=== PATIENT | female | born 1990 | race Caucasian/White ===

== ENCOUNTER 2016-06-24 15:32 | Emergency (ER) | payer MEDICAID, OTHER ==
[2016-06-24 15:56] LABS: MICROSCOPIC INDICATED? MAN YES (NO)
[2016-06-24 16:05] LABS: SQUAMOUS EPITHELIAL CELL URINE MOD AMOUNT /hpf (SMALL AMT); WBC, URINE TNTC /hpf (0-3)
[2016-06-24 16:06] LABS: BACTERIA, URINE MOD AMOUNT
[2016-06-24 16:07] LABS: HYALINE CAST, URINE NONE SEEN /lpf (0-1)
[2016-06-24 16:08] LABS: MICROSCOPIC EXAM PERFORMED
[2016-06-24] MEDS ORDERED: NITROFURANTOIN (MACROBID) 100 MG CAP As Ordered ONE (16:28)
--- NOTE | 2016-06-24 16:37 | EDDOCDS ---
Physician Documentation [facility] Name: Jasmina Guerrier Age: 26 yrs Sex: Female : 1990 Arrival Date: 06/24/2016 Time: 15:32 Bed Triage 2 Private MD: Cindy [facility] Disposition: 06/24/16 16:28 Discharged to Home/Self Care. Impression: Acute cystitis. - Condition is Stable. - Prescriptions for Macrobid 100 mg Oral Capsule - take 100 milligram by ORAL route every 12 hours for 14 days; 28 capsule. Pyridium 200 mg Oral Tablet - take 1 tablet by ORAL route every 8 hours for 3 days; 9 tablet. - Medication Reconciliation, Local Pharmacy Hours form. - Follow up: Emergency Department; When: As soon as possible; Reason: Worsening of conditions. Follow up: Private Physician; When: 2 - 3 days; Reason: Recheck today's complaints. - Problem is an ongoing problem. - Symptoms are unchanged. Historical: - Allergies: no known allergies; - Home Meds: 1. Pyridium 200 mg Oral tab (Last dose: 06/24/2016 11:30) - PMHx: UTI's, Frequent; - PSHx: Appendectomy; Adenoidectomy; Tonsillectomy; - Social history: Smoking status: Patient uses tobacco products, current every day smoker. No barriers to communication noted, The patient speaks fluent Nepali, Speaks appropriately for age. - Family history: Not pertinent. - : The pt / caregiver states he / she is not on anticoagulants. Home medication list is obtained from the patient. - Exposure Risk Screening:: None identified. 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 5 in. (165.10 cm) (R); Pain 7/10; 15:34 Body Mass Index 21.13 (57.61 kg, 165.10 cm) gr2 MDM: 15:46 Urine Culture Ordered. EDMS 15:52 URINALYSIS MANUAL Ordered. EDMS 16:22 MICROSCOPIC, URINE Reviewed. jk8 16:22 URINALYSIS MANUAL Reviewed. jk8 16:27 Nitrofurantoin 100 mg PO once ordered. jk8 16:36 Financial registration complete. christian 16:36 [facility] Payment Agreement was scanned into [employer] and attached to record. christian Administered Medications: 16:29 Drug: Nitrofurantoin 100 mg Route: PO; srm Signatures: Dispatcher [employer] EDMS Audra Juarez RN RN srm Robie, Kathleen, RN RN kr3 Eulalio Benítez PA-C PA-C jk8 Beck, Gabriela gjb The chart was reviewed and I authenticate all verbal orders and agree with the evaluation and treatment provided.Corrections: (The following items were deleted from the chart) 15:52 15:46 URINALYSIS+LAB ordered. EDMS EDMS Attachments: 16:36 [facility] Payment Agreement gjtesha MTDD
--- NOTE | 2016-06-24 16:37 | EDDOCDS ---
Nurse's Notes [facility] Name: Jasmina Guerrier Age: 26 yrs Sex: Female : 1990 Arrival Date: 06/24/2016 Time: 15:32 Bed Triage 2 Private MD: Cindy [facility] Diagnosis: Acute cystitis Presentation: 06/24 15:41 Presenting complaint: Patient states: symptoms of UTI since waking this AM. Adult kr3 Sepsis Screening: The patient does not have new or worsening altered mentation. Patient's respiratory rate is less than 22. Systolic blood pressure is greater than 100. Patient has a qSOFA score of 0- Negative Sepsis Screen. Suicide/Homicide risk assessment- the patient denies having any suicidal and/or homicidal ideations and does not present with any other emotional, behavioral or mental health complaints. Status: Patient is not a food service aide or dependent. Transition of care: patient was not received from another setting of care. 15:41 Acuity: HEIKE Level 4 kr3 15:41 Method Of Arrival: Walkin/Carried/Asstd kr3 Triage Assessment: 15:42 General: Appears in no apparent distress, comfortable, Behavior is cooperative. Pain: kr3 Denies pain. HIV screening NA for this visit Offered previously. Neurological: No deficits noted. Respiratory: Respiratory effort is even, unlabored. : Reports burning with urination urgency urinary frequency. 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 Pyridium 200 mg Oral tab (Last dose: 06/24/2016 11:30) - PMHx: UTI's, Frequent; - PSHx: Appendectomy; Adenoidectomy; Tonsillectomy; - Social history: Smoking status: Patient uses tobacco products, current every day smoker. No barriers to communication noted, The patient speaks fluent Upper Sorbian, Speaks appropriately for age. - Family history: Not pertinent. - : The pt / caregiver states he / she is not on anticoagulants. Home medication list is obtained from the patient. - Exposure Risk Screening:: None identified. Screenin:34 Screening information is obtained from the patient. Fall risk: No risks identified. srm Assistance ADL's: requires no assistance with activities of daily living. Abuse/DV Screen: The patient / caregiver reports he/she is: not in a situation that causes fear, pain or injury. Nutritional screening: No deficits noted. Advance Directives: There is no active DNR order. home support is adequate. Assessment: 16:34 General: Appears in no apparent distress, Behavior is appropriate for age, cooperative. srm EENT: No deficits noted. Cardiovascular: No deficits noted. Respiratory: No deficits noted. GI: No deficits noted. 16:34 : Reports burning with urination urinary frequency. [facility] Vital Signs: 15:34 BP 116 / 63; Pulse 85; Resp 18 S; Temp 96.8(O); Pulse Ox 100% on R/A; Weight 57.61 kg gr2 (R); Height 5 ft. 5 in. (165.10 cm) (R); Pain 7/10; 15:34 Body Mass Index 21.13 (57.61 kg, 165.10 cm) gr2 Vitals: 15:34 Log In Time: June 24, 2016 at 15:34. gr2 ED Course: 15:33 Patient visited by Livia Cartagena. gr2 15:33 Patient moved to Waiting gr2 15:34 [facility] is Private Physician. gr2 15:36 Patient visited by Livia Cartagena. gr2 15:36 Patient moved to Pre RCE gr2 15:42 Triage Initiated kr3 15:43 Patient moved to Triage 2 kr3 15:49 Urine Culture Sent. kr3 15:56 URINALYSIS MANUAL Sent. jf3 16:22 [facility]ul[facility] jk8 16:22 Tammie Ricci MD is Attending Physician. jk8 16:26 Patient visited by Eulalio Benítez PA-C. jk8 16:34 The patient / caregiver is instructed regarding the plan of care and ED course. Patient srm has correct armband on for positive identification. 16:34 No IV's were initiated during this patient's visit. No procedures done that require srm assistance. 16:36 [facility] Payment Agreement was scanned into [employer] and attached to record. gjb Administered Medications: 16:29 Drug: Nitrofurantoin 100 mg Route: PO; srm Order Results: Lab Order: URINALYSIS MANUAL; SPEC'M 06/24/16 15:47 Test: APPEARANCE, URINE MANUAL; Value: HAZY; Range: CLEAR; Abnormal: Above high normal; Status: F Test: COLOR, URINE MANUAL; Value: ORANGE; Range: YELLOW; Abnormal: Above high normal; Status: F Test: PH,URINE MAN; Value: 5.0; Range: 5.0 - 9.0; Units: UNITS; Status: F Test: SPECIFIC GRAVITY,URINE MANUAL; Value: 1.020; Range: 1.002-1.035; Status: F Test: PROTEIN, URINE MANUAL; Value: OBSCURED; Range: NEGATIVE; Abnormal: Above high normal; Units: mg/dL; Status: F Test: GLUCOSE, URINE (UA) MANUAL; Value: OBSCURED; Range: NEGATIVE; Abnormal: Above high normal; Units: mg/dL; Status: F Test: KETONE, URINE MANUAL; Value: OBSCURED; Range: NEGATIVE; Abnormal: Above high normal; Units: mg/dL; Status: F Test: UROBILINOGEN, URINE MANUAL; Value: OBSCURED; Range: NORMAL; Abnormal: Above high normal; Units: mg/dl; Status: F Test: BILIRUBIN, URINE MANUAL; Value: OBSCURED; Range: NEGATIVE; Abnormal: Above high normal; Status: F Test: NITRITE, URINE MANUAL; Value: OBSCURED; Range: NEGATIVE; Abnormal: Above high normal; Status: F Test: LEUKOCYTE ESTERASE, URINE MAN; Value: OBSCURED; Range: NEGATIVE; Abnormal: Above high normal; Status: F Test: BLOOD URINE MANUAL; Value: OBSCURED; Range: NEGATIVE; Abnormal: Above high normal; Status: F Lab Order: MICROSCOPIC, URINE; SPEC'M 06/24/16 15:47 Test: WBC, URINE; Value: TNTC; Range: 0-3; Abnormal: Above high normal; Units: /hpf; Status: F Test: RBC, URINE; Value: 5-7; Range: 0-3; Abnormal: Above high normal; Units: /hpf; Status: F Test: SQUAMOUS EPITHELIAL CELL URINE; Value: MOD AMOUNT; Range: SMALL AMT; Abnormal: Above high normal; Units: /hpf; Status: F Test: BACTERIA, URINE; Value: MOD AMOUNT; Range: NONE; Abnormal: Above high normal; Status: F Test: HYALINE CAST, URINE; Value: NONE SEEN; Range: 0-1; Units: /lpf; Status: F Test: MICROSCOPIC EXAM; Status: I Test: MUCUS, URINE; Value: MOD AMOUNT; Range: NEGATIVE; Abnormal: Above high normal; Status: F Test: AMORPHOUS SEDIMENT, URINE; Value: SMALL AMOUNT; Range: NEGATIVE; Abnormal: Above high normal; Status: F Test: MICROSCOPIC EXAM; Value: PERFORMED; Status: F Outcome: 16:28 Discharge ordered by Provider. jk8 16:34 Discharge Assessment: Patient awake, alert and oriented x 3. No cognitive and/or srm functional deficits noted. Patient verbalized understanding of disposition instructions. patient administered narcotics - no. The following High Risk Discharge criteria are identified: None. Discharged to home ambulatory. Condition: good Condition: stable. Discharge instructions given to patient, Instructed on discharge instructions, follow up and referral plans. medication usage, Demonstrated understanding of instructions, medications, Pt was receptive of discharge instructions/ teaching. Prescriptions given X 2. No special radiology studies were completed. Property :Personal belongings accompany Pt. 16:36 Patient left the ED. srm Signatures: Audra Juarez RN RN srm Steffany OlearyRN RN kr3 Livia Cartagena gr2 Eulalio Benítez, PA-C PA-C jk8 Nawaf Beebe,RN RN preston3 Jacinta Kwok Corrections: (The following items were deleted from the chart) 15:52 15:49 URINALYSIS+LAB sent. kr3 EDMS MTDD
--- NOTE | 2016-06-26 17:37 | EDDOCDS ---
Nurse's Notes [facility] Name: Jasmina Guerrier Age: 26 yrs Sex: Female : 1990 Arrival Date: 06/24/2016 Time: 15:32 Bed Triage 2 Private MD: Cindy [facility] Diagnosis: Acute cystitis Presentation: 06/24 15:41 Presenting complaint: Patient states: symptoms of UTI since waking this AM. Adult kr3 Sepsis Screening: The patient does not have new or worsening altered mentation. Patient's respiratory rate is less than 22. Systolic blood pressure is greater than 100. Patient has a qSOFA score of 0- Negative Sepsis Screen. Suicide/Homicide risk assessment- the patient denies having any suicidal and/or homicidal ideations and does not present with any other emotional, behavioral or mental health complaints. Status: Patient is not a passenger service representative or dependent. Transition of care: patient was not received from another setting of care. 15:41 Acuity: HEIKE Level 4 kr3 15:41 Method Of Arrival: Walkin/Carried/Asstd kr3 Triage Assessment: 15:42 General: Appears in no apparent distress, comfortable, Behavior is cooperative. Pain: kr3 Denies pain. HIV screening NA for this visit Offered previously. Neurological: No deficits noted. Respiratory: Respiratory effort is even, unlabored. : Reports burning with urination urgency urinary frequency. 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 Pyridium 200 mg Oral tab (Last dose: 06/24/2016 11:30) - PMHx: UTI's, Frequent; - PSHx: Appendectomy; Adenoidectomy; Tonsillectomy; - Social history: Smoking status: Patient uses tobacco products, current every day smoker. No barriers to communication noted, The patient speaks fluent Indonesian, Speaks appropriately for age. - Family history: Not pertinent. - : The pt / caregiver states he / she is not on anticoagulants. Home medication list is obtained from the patient. - Exposure Risk Screening:: None identified. Screenin:34 Screening information is obtained from the patient. Fall risk: No risks identified. srm Assistance ADL's: requires no assistance with activities of daily living. Abuse/DV Screen: The patient / caregiver reports he/she is: not in a situation that causes fear, pain or injury. Nutritional screening: No deficits noted. Advance Directives: There is no active DNR order. home support is adequate. Assessment: 16:34 General: Appears in no apparent distress, Behavior is appropriate for age, cooperative. srm EENT: No deficits noted. Cardiovascular: No deficits noted. Respiratory: No deficits noted. GI: No deficits noted. 16:34 : Reports burning with urination urinary frequency. [facility] Vital Signs: 15:34 BP 116 / 63; Pulse 85; Resp 18 S; Temp 96.8(O); Pulse Ox 100% on R/A; Weight 57.61 kg gr2 (R); Height 5 ft. 5 in. (165.10 cm) (R); Pain 7/10; 15:34 Body Mass Index 21.13 (57.61 kg, 165.10 cm) gr2 Vitals: 15:34 Log In Time: June 24, 2016 at 15:34. gr2 ED Course: 15:33 Patient visited by Livia Cartagena. gr2 15:33 Patient moved to Waiting gr2 15:34 [facility] is Private Physician. gr2 15:36 Patient visited by Livia Cartagena. gr2 15:36 Patient moved to Pre RCE gr2 15:42 Triage Initiated kr3 15:43 Patient moved to Triage 2 kr3 15:49 Urine Culture Sent. kr3 15:56 URINALYSIS MANUAL Sent. jf3 16:22 [facility] jk8 16:22 Tammie Ricci MD is Attending Physician. jk8 16:26 Patient visited by Eulalio Benítez PA-C. jk8 16:34 The patient / caregiver is instructed regarding the plan of care and ED course. Patient srm has correct armband on for positive identification. 16:34 No IV's were initiated during this patient's visit. No procedures done that require srm assistance. 16:36 [facility] Payment Agreement was scanned into [employer] and attached to record. gjb 16:42 Patient name changed from Jasmina\S\\S\Eselin\S\ to Jasmina\S\ \S\Eselin. EDMS 06/25 10:48 T-Sheet-- Draft Copy was scanned into [employer] and attached to record. gb Administered Medications: 06/24 16:29 Drug: Nitrofurantoin 100 mg Route: PO; srm Order Results: Lab Order: Urine Culture; SPEC'M 06/24/16 15:47 Test: URINE CULTURE; Value: <EXTERNAL COMMENT eCWMed> FULL REPORT IN LAB NOTES (eCW and Medent).; Status: F Test: URINE CULTURE; Value: URINE CULTURE RESULT NO GROWTH; Status: F Lab Order: URINALYSIS MANUAL; SPEC'M 06/24/16 15:47 Test: APPEARANCE, URINE MANUAL; Value: HAZY; Range: CLEAR; Abnormal: Above high normal; Status: F Test: COLOR, URINE MANUAL; Value: ORANGE; Range: YELLOW; Abnormal: Above high normal; Status: F Test: PH,URINE MAN; Value: 5.0; Range: 5.0 - 9.0; Units: UNITS; Status: F Test: SPECIFIC GRAVITY,URINE MANUAL; Value: 1.020; Range: 1.002-1.035; Status: F Test: PROTEIN, URINE MANUAL; Value: OBSCURED; Range: NEGATIVE; Abnormal: Above high normal; Units: mg/dL; Status: F Test: GLUCOSE, URINE (UA) MANUAL; Value: OBSCURED; Range: NEGATIVE; Abnormal: Above high normal; Units: mg/dL; Status: F Test: KETONE, URINE MANUAL; Value: OBSCURED; Range: NEGATIVE; Abnormal: Above high normal; Units: mg/dL; Status: F Test: UROBILINOGEN, URINE MANUAL; Value: OBSCURED; Range: NORMAL; Abnormal: Above high normal; Units: mg/dl; Status: F Test: BILIRUBIN, URINE MANUAL; Value: OBSCURED; Range: NEGATIVE; Abnormal: Above high normal; Status: F Test: NITRITE, URINE MANUAL; Value: OBSCURED; Range: NEGATIVE; Abnormal: Above high normal; Status: F Test: LEUKOCYTE ESTERASE, URINE MAN; Value: OBSCURED; Range: NEGATIVE; Abnormal: Above high normal; Status: F Test: BLOOD URINE MANUAL; Value: OBSCURED; Range: NEGATIVE; Abnormal: Above high normal; Status: F Lab Order: MICROSCOPIC, URINE; SPEC'M 06/24/16 15:47 Test: WBC, URINE; Value: TNTC; Range: 0-3; Abnormal: Above high normal; Units: /hpf; Status: F Test: RBC, URINE; Value: 5-7; Range: 0-3; Abnormal: Above high normal; Units: /hpf; Status: F Test: SQUAMOUS EPITHELIAL CELL URINE; Value: MOD AMOUNT; Range: SMALL AMT; Abnormal: Above high normal; Units: /hpf; Status: F Test: BACTERIA, URINE; Value: MOD AMOUNT; Range: NONE; Abnormal: Above high normal; Status: F Test: HYALINE CAST, URINE; Value: NONE SEEN; Range: 0-1; Units: /lpf; Status: F Test: MICROSCOPIC EXAM; Status: I Test: MUCUS, URINE; Value: MOD AMOUNT; Range: NEGATIVE; Abnormal: Above high normal; Status: F Test: AMORPHOUS SEDIMENT, URINE; Value: SMALL AMOUNT; Range: NEGATIVE; Abnormal: Above high normal; Status: F Test: MICROSCOPIC EXAM; Value: PERFORMED; Status: F Outcome: 16:28 Discharge ordered by Provider. jk8 16:34 Discharge Assessment: Patient awake, alert and oriented x 3. No cognitive and/or srm functional deficits noted. Patient verbalized understanding of disposition instructions. patient administered narcotics - no. The following High Risk Discharge criteria are identified: None. Discharged to home ambulatory. Condition: good Condition: stable. Discharge instructions given to patient, Instructed on discharge instructions, follow up and referral plans. medication usage, Demonstrated understanding of instructions, medications, Pt was receptive of discharge instructions/ teaching. Prescriptions given X 2. No special radiology studies were completed. Property :Personal belongings accompany Pt. 16:36 Patient left the ED. srm Signatures: Dispatcher [employer] EDAudra Estrada, RN RN [facility] Katie Farmer, Reg Reg Steffany Oleary,RN RN kr3 Livia Cartagena gr2 Eulalio Benítez PABrittney PABrittney jk8 Nawaf Beebe,BRIANNA RN preston3 Jacinta Kwok Corrections: (The following items were deleted from the chart) 15:52 15:49 URINALYSIS+LAB sent. royer MCINTOSH Chart Complete MTDD
--- NOTE | 2016-06-26 17:37 | EDDOCDS ---
Physician Documentation [facility] Name: Jasmina Guerrier Age: 26 yrs Sex: Female : 1990 Arrival Date: 06/24/2016 Time: 15:32 Bed Triage 2 Private MD: Cindy [facility] Disposition: 06/24/16 16:28 Discharged to Home/Self Care. Impression: Acute cystitis. - Condition is Stable. - Prescriptions for Macrobid 100 mg Oral Capsule - take 100 milligram by ORAL route every 12 hours for 14 days; 28 capsule. Pyridium 200 mg Oral Tablet - take 1 tablet by ORAL route every 8 hours for 3 days; 9 tablet. - Medication Reconciliation, Local Pharmacy Hours form. - Follow up: Emergency Department; When: As soon as possible; Reason: Worsening of conditions. Follow up: Private Physician; When: 2 - 3 days; Reason: Recheck today's complaints. - Problem is an ongoing problem. - Symptoms are unchanged. Historical: - Allergies: no known allergies; - Home Meds: 1. Pyridium 200 mg Oral tab (Last dose: 06/24/2016 11:30) - PMHx: UTI's, Frequent; - PSHx: Appendectomy; Adenoidectomy; Tonsillectomy; - Social history: Smoking status: Patient uses tobacco products, current every day smoker. No barriers to communication noted, The patient speaks fluent Hungarian, Speaks appropriately for age. - Family history: Not pertinent. - : The pt / caregiver states he / she is not on anticoagulants. Home medication list is obtained from the patient. - Exposure Risk Screening:: None identified. 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 5 in. (165.10 cm) (R); Pain 7/10; 15:34 Body Mass Index 21.13 (57.61 kg, 165.10 cm) gr2 MDM: 15:46 Urine Culture Ordered. EDMS 15:52 URINALYSIS MANUAL Ordered. EDMS 16:22 MICROSCOPIC, URINE Reviewed. jk8 16:22 URINALYSIS MANUAL Reviewed. jk8 16:27 Nitrofurantoin 100 mg PO once ordered. jk8 16:36 Financial registration complete. [facility] 16:36 [facility] Payment Agreement was scanned into [employer] and attached to record. [facility] 06/25 10:48 T-Sheet-- Draft Copy was scanned into [employer] and attached to record. gb Administered Medications: 06/24 16:29 Drug: Nitrofurantoin 100 mg Route: PO; srm Signatures: Dispatcher [employer] EDMS Audra Juarez, RN RN srm Katie Farmer, Reg Reg gb Steffany Oleary,RN RN kr3 Eulalio Benítez PA-C PA-C jk8 Beck, Gabriela gjb The chart was reviewed and I authenticate all verbal orders and agree with the evaluation and treatment provided.Corrections: (The following items were deleted from the chart) 15:52 15:46 URINALYSIS+LAB ordered. EDMS EDMS Attachments: 16:36 [facility] Payment Agreement [facility] 06/25 10:48 T-Sheet-- Draft Copy gb Chart Complete MTDD
--- NOTE | 2016-06-26 17:37 | EDDOCDS ---
Physician Documentation [facility] Name: Jasmina Guerrier Age: 26 yrs Sex: Female : 1990 Arrival Date: 06/24/2016 Time: 15:32 Bed Triage 2 Private MD: Cindy [facility] Disposition: 06/24/16 16:28 Discharged to Home/Self Care. Impression: Acute cystitis. - Condition is Stable. - Prescriptions for Macrobid 100 mg Oral Capsule - take 100 milligram by ORAL route every 12 hours for 14 days; 28 capsule. Pyridium 200 mg Oral Tablet - take 1 tablet by ORAL route every 8 hours for 3 days; 9 tablet. - Medication Reconciliation, Local Pharmacy Hours form. - Follow up: Emergency Department; When: As soon as possible; Reason: Worsening of conditions. Follow up: Private Physician; When: 2 - 3 days; Reason: Recheck today's complaints. - Problem is an ongoing problem. - Symptoms are unchanged. Historical: - Allergies: no known allergies; - Home Meds: 1. Pyridium 200 mg Oral tab (Last dose: 06/24/2016 11:30) - PMHx: UTI's, Frequent; - PSHx: Appendectomy; Adenoidectomy; Tonsillectomy; - Social history: Smoking status: Patient uses tobacco products, current every day smoker. No barriers to communication noted, The patient speaks fluent Turkmen, Speaks appropriately for age. - Family history: Not pertinent. - : The pt / caregiver states he / she is not on anticoagulants. Home medication list is obtained from the patient. - Exposure Risk Screening:: None identified. 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 5 in. (165.10 cm) (R); Pain 7/10; 15:34 Body Mass Index 21.13 (57.61 kg, 165.10 cm) gr2 MDM: 15:46 Urine Culture Ordered. EDMS 15:52 URINALYSIS MANUAL Ordered. EDMS 16:22 MICROSCOPIC, URINE Reviewed. jk8 16:22 URINALYSIS MANUAL Reviewed. jk8 16:27 Nitrofurantoin 100 mg PO once ordered. jk8 16:36 Financial registration complete. [facility] 16:36 [facility] Payment Agreement was scanned into [employer] and attached to record. [facility] 06/25 10:48 T-Sheet-- Draft Copy was scanned into [employer] and attached to record. gb Administered Medications: 06/24 16:29 Drug: Nitrofurantoin 100 mg Route: PO; srm Signatures: Dispatcher [employer] EDMS Audra Juarez, RN RN srm Katie Farmer, Reg Reg gb Steffany Oleary,RN RN kr3 Eulalio Benítez PA-C PA-C jk8 Beck, Gabriela gjb The chart was reviewed and I authenticate all verbal orders and agree with the evaluation and treatment provided.Corrections: (The following items were deleted from the chart) 15:52 15:46 URINALYSIS+LAB ordered. EDMS EDMS Attachments: 16:36 [facility] Payment Agreement [facility] 06/25 10:48 T-Sheet-- Draft Copy gb Chart Complete MTDD
== END 2016-06-24 16:36 | disposition home or self-care (01) ==
LOC: M ED 15:32
DX: N30.00 Acute cystitis without hematuria (principal); Z87.440 Personal history of urinary (tract) infections; F17.200 Nicotine dependence, unspecified, uncomplicated

== ENCOUNTER → 2018-05-06 | Outpatient (CLI) | payer OTHER ==
[2018-05-06 17:58] LABS: BASO % 0.4 % (0.0-1.0); EOS # 0.1 10^3/uL (0.0-0.50); EOS % 0.9 % (0.0-3.0); HEMATOCRIT 37.1 % (36.0-47.0); HEMOGLOBIN 12.5 g/dl (12.0-15.5); LYMPH # 1.2 10^3/uL (1.5-6.5); LYMPH % 14.3 % (24.0-44.0); MEAN CORPUSCULAR HEMOGLOBIN 30.8 pg (27.0-33.0); MEAN CORPUSCULAR HGB CONC 33.7 g/dl (32.0-36.5); MEAN CORPUSCULAR VOLUME 91.4 fl (80.0-96.0); MONO # 0.4 10^3/uL (0.0-0.8); MONO % 5.3 % (0.0-5.0); NEUTROPHILS # 6.4 10^3/uL (1.8-7.7); NEUTROPHILS % 78.7 % (36.0-66.0); PLATELET COUNT, AUTOMATED 179 10^3/uL (150-450); RED BLOOD COUNT 4.06 10^6/uL (4.00-5.40); WHITE BLOOD COUNT 8.1 10^3/uL (4.0-10.0)
[2018-05-06 19:54] LABS: CHLAMYDIA DNA AMPLIFICATION NEGATIVE (NEGATIVE); GC DNA AMPLIFICATION NEGATIVE (NEGATIVE)
[2018-05-07 11:56] LABS: HEPATITIS C VIRUS ABY INDEX 0.1 INDEX (<0.8); HIV 1&2 SCREEN CENTAUR NEGATIVE (NEGATIVE); RUBELLA IgG QUALITATIVE IMMUNE (IMMUNE)
== END ==
LOC: M SMT 14:55
PROVIDERS: ATTEND Advanced Practice Midwife
DX: Z36.89 Encounter for other specified antenatal screening (principal)

== ENCOUNTER → 2018-06-11 | Outpatient (CLI) | payer OTHER ==
--- NOTE | 2018-06-11 22:39 | REP ---
Clinical: Anatomical evaluation. Comparison: None . Findings: Examination demonstrates a single live intrauterine in variable presentation. motion is identified by technologist. Placenta is noted anterior and grade grade zero without evidence for placenta previa or abruption. Amniotic fluid volume is normal. Cervix measures 4.2 cm in length and appears closed. No evidence for nuchal cord. Gestational age by LMP 18 weeks 1 day with LONI 11/11/2018 . Gestational age by current measurements 17 weeks 5 days with LONI 11/14/2018 . FHR equals 146 beats per minute. BPD 3.8 cm 17 weeks 5 days HC 14.7 cm 17 weeks 6 days AC 12.1 cm 17 weeks 5 days FL 2.6 cm 17 weeks 6 days HL 2.5 cm 17 weeks 5 days HC/AC ratio 1.21 Estimated weight 210 grams ( 35th percentile). Anatomical assessment demonstrates normal structures including cranium, choroid plexus, cavum, cerebellum/posterior fossa, stomach, cord insertion/three-vessel cord, kidneys/bladder, spine, and extremities. Limited evaluation of the facial features, lungs, four-chamber heart/ventricular outflow tracts, and diaphragm. Impression: Single live intrauterine in variable presentation demonstrating appropriate interval growth. Anatomical limitations as noted above warrants reevaluation and follow-up. No gross abnormality identified. Electronically Signed by Joselo Allen MD 06/11/2018 10:30 P
== END ==
LOC: M RAD 10:26
PROVIDERS: ATTEND Advanced Practice Midwife
DX: Z36.89 Encounter for other specified antenatal screening (principal); Z3A.17 17 weeks gestation of pregnancy

== ENCOUNTER → 2018-07-03 | Outpatient (CLI) | payer OTHER ==
--- NOTE | 2018-07-03 15:08 | REP ---
OB ULTRASOUND: Real-time sonographic evaluation of gravid uterus performed. There is a single living intrauterine gestation, estimated gestational age 21 weeks 2 days, EDC 11/11/2018. Today's measurements indicate appropriate growth. BPD 47 mm = 20 weeks 1 day, 18th percentile HC 179 mm = 20 weeks 2 days, 20th percentile AC 152 mm = 20 weeks 3 days, 31st percentile Femur length 34 mm = 20 weeks 5 days, 36th percentile HC/AC ratio 1.18, within normal range. Estimated weight 359 grams, 22nd percentile. Cervix closed and measures 4.8 cm in length. heart rate 150 beats per minute. SEEN/GROSSLY UNREMARKABLE Lateral ventricles Yes Posterior fossa Yes Upper lip No Four-chamber heart No LVOT No RVOT No Stomach Yes Cord insertion Yes Three vessel cord Yes Kidneys Yes Bladder Yes Spine Yes position: Breech. Placenta: Anterior and grade 0 with no previa or abruption. Amniotic fluid: Within normal limits. Electronically Signed by Franco Bailey MD 07/04/2018 03:51 P
== END ==
LOC: M RAD 12:32
PROVIDERS: ATTEND Advanced Practice Midwife
DX: Z34.82 Encounter for supervision of other normal pregnancy, second trimester (principal); Z3A.21 21 weeks gestation of pregnancy

== ENCOUNTER → 2018-07-31 | Outpatient (CLI) | payer OTHER ==
--- NOTE | 2018-07-31 18:01 | REP ---
Clinical: Anatomical evaluation. Comparison: Cephalic . Findings: Examination demonstrates a single live intrauterine in cephalic presentation. motion is identified by technologist. Placenta is noted anterior and grade I without evidence for placenta previa or abruption. Amniotic fluid volume is normal. Cervix measures 4.8 cm in length and appears closed. No evidence for nuchal cord. Gestational age by LMP 25 weeks 2 days with LONI 11/11/2018 . Gestational age by current measurements 24 weeks 1 day with LONI 11/19/2018 . FHR equals 139 beats per minute. Estimated weight 694 grams ( 21st percentile). Anatomical assessment demonstrates normal structures including cranium, choroid plexus, cavum, cerebellum/posterior fossa, facial features, lungs, four-chamber heart/ventricular outflow tracts, diaphragm, stomach, cord insertion/three-vessel cord, kidneys/bladder, spine, and extremities. Impression: Single live intrauterine in cephalic presentation demonstrating appropriate interval growth. 2. Anatomical assessment is complete and normal. Electronically Signed by Joselo Allen MD 07/31/2018 05:53 P
== END ==
LOC: M RAD 12:35
PROVIDERS: ATTEND Advanced Practice Midwife
DX: O99.332 Smoking (tobacco) complicating pregnancy, second trimester (principal); Z3A.25 25 weeks gestation of pregnancy; F17.200 Nicotine dependence, unspecified, uncomplicated

== ENCOUNTER → 2018-08-18 | Outpatient (CLI) | payer OTHER ==
[2018-08-18 13:46] LABS: HEMATOCRIT 36.2 % (36.0-47.0); HEMOGLOBIN 12.3 g/dl (12.0-15.5); MEAN CORPUSCULAR HEMOGLOBIN 31.1 pg (27.0-33.0); MEAN CORPUSCULAR VOLUME 91.4 fl (80.0-96.0); PLATELET COUNT, AUTOMATED 189 10^3/uL (150-450); RED BLOOD COUNT 3.96 10^6/uL (4.00-5.40); WHITE BLOOD COUNT 12.1 10^3/uL (4.0-10.0)
== END ==
LOC: M LAB 12:16
PROVIDERS: ATTEND Advanced Practice Midwife
DX: O99.332 Smoking (tobacco) complicating pregnancy, second trimester (principal); Z3A.00 Weeks of gestation of pregnancy not specified

== ENCOUNTER → 2018-10-10 | Outpatient (REF) | payer OTHER | LOC: M LAB REF 16:56 | PROVIDERS: ATTEND Advanced Practice Midwife | DX: O99.333 Smoking (tobacco) complicating pregnancy, third trimester (principal) ==

== ENCOUNTER → 2018-10-16 | Outpatient (CLI) | payer OTHER | LOC: M SMT 13:44 | PROVIDERS: ATTEND Advanced Practice Midwife | DX: O99.333 Smoking (tobacco) complicating pregnancy, third trimester (principal); F17.200 Nicotine dependence, unspecified, uncomplicated ==

== ENCOUNTER 2018-11-13 08:01 | Inpatient (IN) | payer OTHER ==
[~2018-11-13] VITALS: Ht 165.1 cm; Wt 88.0 kg
[2018-11-13] VITALS (13 sets, daily range): BP systolic 94–108; BP diastolic 50–58
[2018-11-13] MEDS ORDERED: CVS500CA5 PO (08:22)
[2018-11-13] MEDS ORDERED: HM C500T3 PO (08:22)
[2018-11-13] MEDS ORDERED: PRENTAB9 PO (08:22)
[2018-11-13] MEDS: miSOPROStol 50 MCG 1/2 TAB (S0191) PO SCH ×4 (09:36→21:46)
[2018-11-13 09:37] LABS: HEMATOCRIT 34.9 % (36.0-47.0); MEAN CORPUSCULAR HEMOGLOBIN 31.6 pg (27.0-33.0); MEAN CORPUSCULAR HGB CONC 34.4 g/dl (32.0-36.5); MEAN CORPUSCULAR VOLUME 91.8 fl (80.0-96.0); PLATELET COUNT, AUTOMATED 162 10^3/uL (150-450); WHITE BLOOD COUNT 10.2 10^3/uL (4.0-10.0)
[2018-11-13] MEDS ORDERED: NICOTINE POLACRILEX 2 MG GUM PO PRN (09:45)
--- NOTE | 2018-11-13 09:47 | HPEPDOC ---
Obstetrical History & Physical General Date of Admission Nov 13, 2018 at 08:01 History of Present Illness 28 yo G1 at 40 2/7 wks presenting for IOL. She reports feeling well. Denies ctx, VB, LOF, +FM. 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, STIs PMH: denies PSH: T&A, appendectomy Meds: PNV NKDA SH: smokes, denies alcohol or other drug use Information Provided By: Patient Past Medical History Past Medical History Medical History None Surgical History: Appendectomy, Tonsilectomy Family History Significant Family History: No pertinent family hx Social History * Smoker: current smoker Drugs: denies Allergies Coded Allergies: No Known Allergies (Unverified , 11/13/18) Medications Scheduled Cranberry Fruit Extract (Cranberry) 500 Mg Tablet, 1 TAB PO BID No.137/Iron/Folic Acd ( Vitamin Tablet) 1 Each Tablet, 1 TAB PO DAILY Physical Examination Physical Examination GENERAL: Alert and oriented times three. ABDOMEN: Gravid and non-tender to touch. FETUS: Is vertex (VTX) by sterile vaginal examination (SVE), fetus is vertex (VTX) by Kyle. EXTREMITIES: No edema. No clonus. Vital Signs/I&O Vital Signs Date Time Temp Pulse Resp B/P (MAP) Pulse Ox O2 Delivery O2 Flow Rate FiO2 11/13/18 08:43 97.1 78 18 106/58 (74) Laboratory Data 24[facility] Laboratory Tests 2 11/13/18 08:32: Serology Scanned Report Hepatitis B Testing Pertinent Laboratoy Data Blood Type: O+ RBC Antibody Screen: Negative HIV: Negative Hepatitis B: Negative Hepatitis C: Negative Rapid Plasma Reagin: Nonreactive Rubella: Immune Chlamydia/Gonorrhea: Negative Group B Streptococcus: Negative Other Ultrasounds 04/21/2018: viabilitySIUP with CRL: 38.4mm,. 10 weeks 5 days.EDC cw LMP. Positive cardiac motion and movement noted 06/11/2018: AnatomySIUP. Placenta anterior, grade 0, no previa or abruption. AFV normal. Cx 4.2cm closed. FHR 146. EFW 210g (35%). Limited evaluation of facial features, lungs, four-chamber heart, VOT's, and diaphragm. Remainder of assessment complete and normal. 07/03/2018: Follow UpSIUP. Breech. Placenta anterior, grade 0, no previa or abruption. AFV normal. EFW 359g (22%). Cx 4.8cm. FHR 150. Upper lip, four-chamber heart and VOT's still not visualized. Remainder of assessment complete and normal. 07/31/2018: f/uSIUP. Cephalic. Placenta anterior, grade 1, no previa or abruption. AFV normal. Cx 4.8cm closed. FHR 139. EFW 694g (21%). Assessment complete and normal. Steroid Therapy Steroid Therapy: No Vaginal Examination Dilation: None Effacement: 50% Station: -2 Cervical Consistency: Medium Cervical Position: Middle Presentation: Cephalic presentation Assessment Heart Rate (FHR): 130 Variability: Moderate Accelerations: Positive Decelerations: None Tocometer Contractions: Yes Assessment/Plan Assessment 28 yo G1 at 40 2/7 wks here for IOL Plan Admit and orient. Issuer and consent. IOL: will start with misoprostol, SVE prn Diet: Regular Group B Streptococcus (GBS) negative. Labs and intravenous (IV) per unit protocol. FWB: reassuring Smoking: nicotine replacement while admitted d/w Dr. John Richard, PGY3 DENN[place] RICHARD PGY-3 Nov 13, 2018 09:47
[2018-11-14] VITALS (43 sets, daily range): BP systolic 78–127; BP diastolic 46–78
[2018-11-14] MEDS: miSOPROStol 50 MCG 1/2 TAB (S0191) PO SCH (01:42)
--- NOTE | 2018-11-14 06:41 | NUR ---
L&D Note: -No overnight issues. Has received 5 doses of 50mcg cytotec. Exam was unchanged early. Cat 1 tracing with q5mins. Plan to start pitocin. Agata Lopez MD
[2018-11-14] MEDS: OXYTOCIN DRIP 30 UNITS in APPROPRIATE DILUENT 1 EA IV SCH ×2 (06:49→07:37)
[2018-11-14] MEDS: LR 1,000 ML IV SCH ×3 (07:37→18:58)
--- NOTE | 2018-11-14 08:14 | IPNPDOC ---
Text Note Date of Service The patient was seen on 11/14/18. NOTE Comfortable, reports only mild cramping Irregular UC Pitocin @ 2mu Cat I tracing SVE FT-/high Cooks catheter placed Pt plans epidural VS,Fishbone, I+O VS, Fishbone, I+O Laboratory Tests 11/13/18 09:22 Red Blood Count 3.80 L, Mean Corpuscular Volume 91.8, Mean Corpuscular Hemoglobin 31.6, Mean Corpuscular Hemoglobin Concent 34.4, Red Cell Distribution Width 12.9 Vital Signs Date Time Temp Pulse Resp B/P (MAP) Pulse Ox O2 Delivery O2 Flow Rate FiO2 11/14/18 07:42 63 18 99/54 (69) 11/14/18 06:08 98.2 Macy Rangel CNM Nov 14, 2018 08:14
[2018-11-14] MEDS ORDERED: PROMETHAZINE INJ 25 MG/ML VIAL (J2550) IV ONE (08:30)
[2018-11-14] MEDS ORDERED: BUTORPHANOL 2 MG/ML INJ (J0595) IV ONE (08:30)
[2018-11-14] MEDS ORDERED: FENTANYL 2MCG/ML ROPIVACAINE 0.2% IN 0.9% NACL 100ML IVBAG As Ordered ONE (13:51)
[2018-11-14] MEDS ORDERED: LACTATED RINGER'S 1000 ML IV PRN (15:00)
[2018-11-14] MEDS ORDERED: REFRIGERATOR IV KEYS XX PRN (15:00)
[2018-11-14] MEDS ORDERED: diphenhydrAMINE INJ 50MG/ML VIAL (J1200) IV PRN (15:00)
[2018-11-14] MEDS ORDERED: NALOXONE INJ 0.4 MG/1 ML VIAL (J2310) IV PRN (15:00)
[2018-11-14] MEDS ORDERED: FENTANYL/ROPIVACAINE/NACL BAG 100 ML EPIDURAL SCH (15:00)
[2018-11-14] MEDS ORDERED: ePHEDrine SULFATE 25 MG/5 ML(5MG/ML) SYRINGE IV PRN (15:00)
[2018-11-14] MEDS ORDERED: EPIDURAL COMMENT XX SCH (15:00)
[2018-11-14] MEDS ORDERED: EPIDURAL/PCA KEYS XX PRN (15:00)
[2018-11-14] MEDS ORDERED: ONDANSETRON 4MG/2ML VIAL (J2405) IV PRN (15:00)
--- NOTE | 2018-11-14 15:04 | IPNPDOC ---
Text Note Date of Service The patient was seen on 11/14/18. NOTE Comfortable with epidural UC remain irregular, pitocin @ 14. Cat I tracing. Bulb out with SROM 1220 SVE by nursing after epidural 3-4 and high VS,Fishbone, I+O VS, Fishbone, I+O Vital Signs Date Time Temp Pulse Resp B/P (MAP) Pulse Ox O2 Delivery O2 Flow Rate FiO2 11/14/18 14:53 98.7 60 16 97/52 (67) Macy Rangel CNM Nov 14, 2018 15:04
--- NOTE | 2018-11-14 16:20 | IPNPDOC ---
Text Note Date of Service The patient was seen on 11/14/18. NOTE Comfortable with epidural UC 3-5 minutes apart x 60 seconds Pitocin @ 10mu FH Cat I SVE 4-5/80/-3, anterior. Fluid remains clear VS,Fishbone, I+O VS, Fishbone, I+O Vital Signs Date Time Temp Pulse Resp B/P (MAP) Pulse Ox O2 Delivery O2 Flow Rate FiO2 11/14/18 14:53 98.7 60 16 97/52 (67) Macy Rangel CNM Nov 14, 2018 16:20
--- NOTE | 2018-11-14 22:41 | IPNPDOC ---
Text Note Date of Service The patient was seen on 11/14/18. NOTE Remains comfortable with epidural UC 2-4 minutes apart x 60 seconds FH mostly Cat I with short episodes of Cat II Pitocin @ 20mu SVE 5/100/-2 Continue to observe VS,Fishbone, I+O VS, Fishbone, I+O Vital Signs Date Time Temp Pulse Resp B/P (MAP) Pulse Ox O2 Delivery O2 Flow Rate FiO2 11/14/18 19:36 97.6 18 11/14/18 19:30 66 106/57 (73) Macy Rangel CNM Nov 14, 2018 22:41
[2018-11-15] VITALS (18 sets, daily range): BP systolic 91–116; BP diastolic 50–71
[2018-11-15] MEDS ORDERED: OXYTOCIN 30 UNITS IN 0.9% NaCl 500ML IV BAG (J2590) As Ordered ONE ×2 (00:13→12:09)
[2018-11-15] MEDS: OXYTOCIN DRIP 30 UNITS in APPROPRIATE DILUENT 1 EA IV SCH (01:07)
--- NOTE | 2018-11-15 06:28 | IPNPDOC ---
Text Note Date of Service The patient was seen on 11/15/18. NOTE Has been pushing intermittently since 0500. Cat I tracing with early decels with pushing UC 4-5 minutes apart, pitocin @ 20mu Presenting part descends to +2 with pushing efforts, retreats to 0 station in between. Will inform physician VS,Dada, I+O VS, Chuye, I+O Vital Signs Date Time Temp Pulse Resp B/P (MAP) Pulse Ox O2 Delivery O2 Flow Rate FiO2 11/15/18 05:30 57 99/55 (70) 11/15/18 05:00 16 11/15/18 04:30 99.0 I&O- Last 24 Hours up to 6 AM 11/15/18 06:00 Intake Total 3080 ml Output Total 650 ml Balance 2430 ml Macy Rangel CNM Nov 15, 2018 06:27
--- NOTE | 2018-11-15 08:41 | NUR ---
Progress Note Pt had to have epidural bolus for pain relief. Pt was not pushing correctly/effectively when she had uncontrolled pain. Now that she has had adequate pain relief, she's ready to push. SVE: c/c/0 Pushing efforts are focused and with adequate power. Minimal descent with pushing efforts. Cat I FHR [place]: ctxs every 4-5 min; pit adjusted from 4 to 8mU/min A/P: Second stage. Pushing. Minimal descent. Suspect OP presentation. -We discussed PLTCS vs continued efforts for . She would like to continue with pushing efforts. Charlotte Emery, DO
[2018-11-15] MEDS ORDERED: AZITHROMYCIN INJ 500MG VIAL (J0456) As Ordered ONE (09:55)
[2018-11-15] MEDS ORDERED: BICITRA 30ML SOLN UDC As Ordered ONE (09:55)
[2018-11-15] MEDS ORDERED: ceFAZolin 2 GM/D5W 50 ML IV BAG (J0690 PER 500MG) As Ordered ONE (09:55)
--- NOTE | 2018-11-15 10:12 | NUR ---
Progress Note Pt is continuing to push with outstanding effort. However, there has been minimal descent of the vertex. Head position assessed as LOP. Caput present. VSS,afebrile FHR: Cat I, short periods of Cat II, overall reassuring. Moderate variability present. A/P: Arrest of descent. Reassuring maternal and status. Offered PLTCS for arrest of descent. Pt agrees to proceed in this fashion. Informed consent obtained. --Preparations being made for OR. Charlotte Emery DO
[2018-11-15] MEDS ORDERED: BICITRA 30ML SOLN UDC PO ONE (10:15)
[2018-11-15] MEDS ORDERED: AZITHROMYCIN INJ 500 MG, VIAL MATE ADAPTER 1 EACH in D5W 250 ML IV ONE (10:15)
[2018-11-15] MEDS ORDERED: OXYTOCIN INJ 10 UNITS/ML VIAL (J2590) As Ordered ONE (10:26)
[2018-11-15] MEDS ORDERED: MORPHINE PRES-FREE INJ 10 MG/10 ML VIAL (J2274) As Ordered ONE (10:29)
[2018-11-15] MEDS ORDERED: LIDOCAINE PRES-FREE 2% 10ML AMP As Ordered ONE (10:31)
[2018-11-15] MEDS ORDERED: EPINEPHrine INJ 1 MG/ML 1ML AMP As Ordered ONE (10:32)
[2018-11-15] MEDS ORDERED: dexameTHASONE 4 MG/ML 1ML VIAL (J1100) As Ordered ONE (10:32)
[2018-11-15] MEDS ORDERED: MIDAZOLAM INJ 2 MG/2 ML VIAL (J2250) As Ordered ONE (10:59)
[2018-11-15] MEDS ORDERED: NALOXONE INJ 0.4 MG/1 ML VIAL (J2310) IV PRN ×2 (11:10)
[2018-11-15] MEDS ORDERED: ONDANSETRON 4MG/2ML VIAL (J2405) IV PRN ×3 (11:10→12:15)
[2018-11-15] MEDS ORDERED: METOCLOPRAMIDE INJ 10MG/2ML VIAL (J2765) IV PRN (11:10)
[2018-11-15] MEDS ORDERED: diphenhydrAMINE INJ 50MG/ML VIAL (J1200) IV PRN (11:10)
[2018-11-15] MEDS ORDERED: NALBUPHINE HCL 10 MG/ML AMP (J2300) IV PRN ×2 (11:10→12:15)
[2018-11-15] MEDS ORDERED: KETOROLAC 60 MG/2 ML VIAL (J1885) As Ordered ONE (11:38)
[2018-11-15] MEDS ORDERED: OXYTOCIN DRIP 30 UNITS in APPROPRIATE DILUENT 1 EA IV SCH (11:50)
[2018-11-15] MEDS ORDERED: fentaNYL 100 MCG/2 ML INJECTION (J3010) As Ordered ONE (11:53)
--- NOTE | 2018-11-15 11:58 | NUR ---
Operative Note Date of procedure: 11/15/18 Procedure: Primary low-transverse section Anesthesia: Epidural Preoperative diagnosis: 1. Arrest of descent 2. 40+ weeks gestation Postoperative diagnosis: same Indication: Arrest of descent in the second stage of labor Primary surgeon: Eitan Emery D.O., [employer] Driver: Komal Christine DO (essential role in surgical site exposure and assistance with delivery) Estimated blood loss:700 ml IV fluids administered: 1200 ml crystalloid Drains: Andersen catheter. Urine output:150 ml [place] data: Apgars 3,7,9. Birthweight 2970g, 6lbs 9oz. Preoperative/prophylactic antibiotics: Ancef 2 g IV (given within 30 minutes prior to surgical start time). Intraoperative findings: Thick meconium. Occiput posterior presentation. Specimen(s): none Procedure: The patient was counseled and consented on the risks, benefits, indications and alternatives of the procedure. Informed consent was obtained and placed in the c spicer. She was taken to the operating room with an IV running. She was placed on the operating table. Spinal anesthesia was administered without any difficulty and found to be adequate. She was placed in the dorsal supine position with a leftward tilt. Sequential compression devices were placed on the lower extremities. A Andersen catheter was placed under sterile conditions. She was sterilely prepped and draped. A surgical timeout was performed per protocol. Spinal anesthesia was again found to be adequate. Using the 10 blade a Pfannenstiel incision was performed. The 10 blade was used to dissect down to the level of the rectus sheath fascia. The rectus sheath fas kvng was incised at the midline, and the fascial incision was extended with Aparicio scissors. Jsoe clamps were used to grasp the superior and inferior aspect of the fascial incision and the rectus muscle bellies were dissected off sharply and bluntly. The midline was identified and the rectus muscle bellies were manually . The peritoneum was identified and clamped with hemostats and elevated. The peritoneum was then incised with Metzenbaum scissors. Entry into the intraperitoneal cavity was achieved. The peritoneal opening was extended with manual stretch . There was good visualization of both the bladder and the lower uterine segment. The Mobius retractor was placed. The vesicouterine peritoneum was dissected with Metzenbaum scissors and blunt dissection. Bladder retractor was repositioned. A low transverse uterine incision was made with a new 10 blade. The hysterotomy was extended with manual stretch. The amniotic sac was protruding a nd then artificially ruptured. Thick meconium stained amniotic fluid was noted. The baby's head delivered through the hysterotomy with ease. The remainder of the body delivered with ease. The cord was doubly clamped and cut and the baby was handed off to awaiting care. See data above. The placenta was manually removed and noted to be fully intact. The intrauterine cavity was cleared of all clot and debris with a laparotomy sponge. The hysterotomy was closed with 0 Vicryl in running, locked fashion. A second imbricating closure was performed over the initial layer closure using 0 Vicryl. The hysterotomy was noted to be hemostatic. The posterior cul-de-sac was irrigated and cleared of all clot and debris. The paracolic gutters were cleared of all clot and debris with damp laparotomy sponges. The hysterotomy is reinspected and noted to be hemostatic. Sponge, needle and instrument counts were correct. The peritoneum was closed with 3-0 Vicryl in running fashion. The rectus muscle bellies were reapproximated with 3-0 Vicryl with a series of interrupted sutures. The rectus muscle bellies were noted to be hemostatic. The fascia was closed with 0 Vicryl in running fashion. Sponge, needle and instrument counts were again correct. The subcutaneous layer was irrigated. Small subcutaneous bleeders were cauterized with Bovie. The subcutane ous layer was reapproximated with 3-0 Vicryl in running fashion. The skin was closed with 3-0 Monocryl in subcuticular fashion. A bandage was placed over the closed incision. The final sponge, instrument and needle count was correct. She tolerated the entire procedure very well. She was transferred to the PACU in good and stable condition. Dr. Eitan Emery D.O., F.A.C.O.G
[2018-11-15] MEDS ORDERED: MEASLES,MUMPS,RUBELLA VACCINE INJ (MMR-II) (90707) SC SCH (12:00)
[2018-11-15] MEDS ORDERED: PERCOCET 5MG/325MG TAB PO PRN (12:00)
[2018-11-15] MEDS ORDERED: PROMETHAZINE 25 MG TAB PO PRN (12:00)
[2018-11-15] MEDS ORDERED: RHOGAM 300 MCG (1500 IU) INJ (J2790) IM SCH (12:00)
[2018-11-15] MEDS ORDERED: KETOROLAC 30 MG/ML VIAL (J1885) IV PRN (12:15)
[2018-11-15] MEDS ORDERED: fentaNYL 100 MCG/2 ML INJECTION (J3010) IV PRN (12:15)
[2018-11-15] MEDS: LR 1,000 ML IV SCH ×2 (18:33→19:50)
[2018-11-15] MEDS: KETOROLAC 30 MG/ML VIAL (J1885) IV SCH (19:07)
[2018-11-15] MEDS: PRENATAL VITAMINS CHEWABLE TABLET PO SCH (19:46)
[2018-11-15] MEDS: DOCUSATE SODIUM 100 MG CAP PO SCH (20:55)
[2018-11-16] MEDS: KETOROLAC 30 MG/ML VIAL (J1885) IV SCH ×2 (00:36→06:12)
[2018-11-16 02:09] VITALS: BP 100/57
[2018-11-16 06:23] VITALS: BP 97/52
[2018-11-16 06:57] LABS: HEMATOCRIT 28.9 % (36.0-47.0); HEMOGLOBIN 9.4 g/dl (12.0-15.5); MEAN CORPUSCULAR HEMOGLOBIN 30.7 pg (27.0-33.0); MEAN CORPUSCULAR HGB CONC 32.5 g/dl (32.0-36.5); MEAN CORPUSCULAR VOLUME 94.4 fl (80.0-96.0); PLATELET COUNT, AUTOMATED 155 10^3/uL (150-450); RED BLOOD COUNT 3.06 10^6/uL (4.00-5.40); WHITE BLOOD COUNT 19.1 10^3/uL (4.0-10.0)
[2018-11-16] MEDS: DOCUSATE SODIUM 100 MG CAP PO SCH ×2 (07:52→21:32)
[2018-11-16] MEDS: PRENATAL VITAMINS CHEWABLE TABLET PO SCH (07:53)
[2018-11-16] MEDS ORDERED: PRENATAL VITAMINS CHEWABLE TABLET PO SCH (09:00)
--- NOTE | 2018-11-16 09:38 | NUR ---
Postoperative Day 1 Status post primary low transverse section, uncomplicated. Indication: arrest of descent. Subjective Pain is well controlled. Lochia is decreasing and minimal. Voiding spontaneously. Tolerating a regular diet. Ambulating without any assistance. Denies any subjective fever, chills, nausea, vomiting, headache, visual changes, shortness of breath, chest pain. Formula feeding. Objective Vitals: Normotensive, normal heart rate, afebrile, adequate urine output. Heart: regular, rate, and rhythm. no murmurs/gallops/rubs Lungs: clear to auscultation bilaterally, no wheezes/crackles/rales/ronchi Abd: soft, nontender, nondistended, uterine fundus is 2cm below umbilicus and firm Incision: clean, dry, intact Ext: no significant edema, nontender, negative Babita's bilaterally. Preop h/h: 12.0/34.9 Postop h/h: 9.4/28.9 Assessment/Plan: Postoperative day 1 status post primary low transverse section. Recovering well. Hemodynamically stable, afebrile, good pain control. -Routine care -Discharge to home tomorrow. -Routine infectious, fever, pain, and bleeding precautions reviewed -Incision/wound care precautions reviewed. Андрей Nunes.O., F.A.C.O.G.
[2018-11-16] MEDS ORDERED: PERCOCET PO (09:40)
[2018-11-16] MEDS ORDERED: IBUP80TA PO (09:40)
[2018-11-16] MEDS ORDERED: COLA100C5 PO (09:40)
[2018-11-16 09:50] VITALS: BP 105/60
[2018-11-16] MEDS: IBUPROFEN 800 MG TAB PO SCH ×2 (13:51→21:33)
[2018-11-16 14:01] VITALS: BP 104/58
[2018-11-16 17:54] VITALS: BP 107/63
[2018-11-16 22:00] VITALS: BP 107/56
[2018-11-17] MEDS: PERCOCET 5MG/325MG TAB PO PRN ×3 (00:07→11:18)
[2018-11-17 02:00] VITALS: BP 91/50
[2018-11-17 06:00] VITALS: BP 100/56
[2018-11-17] MEDS: IBUPROFEN 800 MG TAB PO SCH (06:25)
--- NOTE | 2018-11-17 08:16 | NUR ---
Discharge Summary Date of admission: 11/13/2018 Date of discharge: 11/17/2018 Admitting diagnosis: Full-term gestation, elective induction of labor Discharge diagnosis: Status post primary low transverse section. Single, liveborn delivered via . Indication: Arrest of descent Discharge Summary: 28 year-old G1 now P1. She was admitted on 11/13/2018 at 40+2 weeks EGA with a diagnosis of full-term gestation requesting a scheduled elective induction of la bor.. Her labor course was complicated by arrest of descent in the second stage of labor. This prompted an unscheduled delivery under epidural anesthesia on 11/15/18. The patient's intraoperative and postoperative courses were uncomplicated. By postoperative day #2, the patient was meeting all discharge criteria. Her pain was well controlled on oral pain meds. She was ambulating without assistance, voiding spontaneously, tolerating a regular diet, and her lochia/bleeding was minimal. Physical exam on date of discharge: Vitals: normotensive, normal HR, afebrile Heart: regular rate and rhythm with no murmurs, gallops, rubs. Lungs: clear to auscultation bilaterally, no wheezes, crackles, rales, ronchi Abd: soft, non-distended, appropriately tender. Normoactive bowel sounds. Incision: clean, dry, intact without surrounding erythema or induration. Ext: non-edematous, non-tender, negative Babita's sign bilaterally Assessment/Plan: 28 year-old G2 now P1001 status post primary low transverse delivery on 11/15/18 now postoperative day #2. Hemodynamically stable, afebrile, with good pain control. Meeting all discharge criteria. -Routine infectious, fever, pain, and bleeding precautions reviewed -Surgical wound/incisional care / precautions reviewed. -Discharge medications: Percocet, Motrin, Colace. -Outpatient follow up in 1-2 weeks for a routine incision / postoperative check. Dr. Eitan Emery, DO, FACOG
[2018-11-17] MEDS: DOCUSATE SODIUM 100 MG CAP PO SCH (08:32)
[2018-11-17] MEDS: PRENATAL VITAMINS CHEWABLE TABLET PO SCH (08:32)
== END 2018-11-17 14:10 | disposition home or self-care (01) | DRG 540 ==
LOC: M LDI 08:01 → M OBS 11-15 13:21
PROVIDERS: ADMIT Obstetrics & Gynecology; ATTEND Obstetrics & Gynecology
PROC: 3E0P7GC Introduction of Other Therapeutic Substance into Female Reproductive, Via Natural or Artificial Opening (ICD-10-PCS; 2018-11-13)
PROC: 10D00Z1 Extraction of Products of Conception, Low, Open Approach (ICD-10-PCS; principal; 2018-11-15 10:30)
DX: O48.0 Post-term pregnancy (principal); Z3A.40 40 weeks gestation of pregnancy; O99.334 Smoking (tobacco) complicating childbirth; F17.210 Nicotine dependence, cigarettes, uncomplicated; O64.0XX0 Obstructed labor due to incomplete rotation of fetal head, not applicable or unspecified; O77.0 Labor and delivery complicated by meconium in amniotic fluid; Z37.0 Single live birth